=== PATIENT | male | born 1955 | race Caucasian/White ===

== ENCOUNTER 2023-12-13 06:02 | Day surgery (SDC) | payer BC, SELFPAY ==
[2023-12-13] VITALS (15 sets, daily range): BP systolic 96–147; BP diastolic 48–76; BMI 20.3
[2023-12-13] MEDS: NSS 184 ML IV (06:45)
[2023-12-13] MEDS: LOW STRENGTH ASPIRIN 81 MG PO (06:46)
--- NOTE | 2023-12-13 08:43 | ITS.CL.ANGIO ---
[facility] - Angioplasty
Angioplasty
Procedure Report:
LEFT HEART CATHETERIZATION
Date of Procedure: December 13, 2023
Procedures performed:
1: Coronary angiography
2: Left ventricular hemodynamic assessment
3: Percutaneous coronary intervention left circumflex artery with placement of a 2.5 x 18 mm Xience drug-eluting stent postdilated high-pressure with a 2.75 mm diameter noncompliant balloon
Primary Care Physician: Dr. Shine Soto
Primary Chemical Processing Equipment Repairer: Dr. Rajat Francis
INDICATION: The patient is a 68-year-old man who presents with atypical chest pain. He underwent nuclear perfusion imaging study which was positive for lateral ischemia.
ACCESS: The patient was prepped and draped in usual sterile fashion. A 6 Iranian sheath was placed in the right radial artery using the Seldinger over the wire technique.
HEMODYNAMIC FINDINGS (mmHg):
LV(s/d,EDP): 142/9, 18
Ao(s/d,m): 142/71, 101
ANGIOGRAPHIC FINDINGS:
Single-plane Left Ventriculography in ACKERMAN Projection: Not done. Normal EF by recent echo.
Coronary Angiography:
Dominance: Right
Left Main: Short, near dual ostial takeoff of the LAD and circumflex.
Left Anterior Descending: The left anterior descending artery is a small to medium caliber vessel that has moderate diffuse calcification. The LAD itself has diffuse moderate luminal irregularities with a smooth mid 50% stenosis. The LAD gives
rise to several small to medium caliber diagonal branches. The largest diagonal branch is the most distal branch. These vessels are widely patent with normal flow. The LAD has a smooth 50% stenosis after the takeoff of the most distal diagonal
branch. All vessels have normal flow distally.
Left Circumflex: The left circumflex is a medium caliber nondominant system that gives rise to 2 major obtuse marginal branches. There is a preocclusive 90% proximal stenosis with normal distal flow in the 2 widely patent distal OM's.
Right Coronary: The right coronary artery is a medium caliber dominant vessel that gives rise to a medium caliber posterior descending artery and 2 medium caliber posterior left ventricular branches. The right coronary artery has mild to moderate
calcification in the midportion associated with a 30% smooth stenosis.
Percutaneous Coronary Intervention (PCI): In light of the above angiographic findings and his clinical presentation, I elected to proceed with a PCI of the circumflex. The patient was pretreated with aspirin and given unfractionated heparin. A
loading dose of clopidogrel 600 mg was given on the table. A 6 Iranian XB 3.5 guiding catheter was used to engage the circumflex. A Hi-Torque floppy wire was easily Foley across the lesion. Predilation was performed a 2.0 x 15 mm balloon. Next a
2.5 x 18 mm Xience drug-eluting stent was deployed at 14 carlos. The stent was postdilated with a 2.75 mm diameter noncompliant balloon at 16 carlos. This was done in a distal to proximal fashion taking care to stay within the stented margins.
FINAL RESULT: 0% residual in-stent stenosis with an excellent angiographic result and normal flow in all vessels.
Fluoroscopy Time (min): 7.6
Radiation Dose (mGy): 268
DAP (Gy.cm2): 16
Closure device: None. A TR band was applied for hemostasis at the right wrist.
Complications: None.
ASSESSMENT:
1: Successful PCI of the circumflex with placement of a drug-eluting stent as described above.
2: Moderate nonobstructive residual LAD and RCA disease.
3: Normal left ventricular filling pressures.
CONCLUSIONS and RECOMMENDATIONS:
1: Routine post drug-eluting stent medical therapy and monitoring with dual antiplatelet therapy using aspirin 81 mg and clopidogrel 75 mg daily uninterrupted for a year and aspirin for life.
2: Medical therapy for coronary artery disease and hypertension with clinical follow-up as scheduled.
Aneta Zaragoza M.D.
Copy to: Dr. Shine Soto
[2023-12-13] MEDS: NSS 1000 IV (08:50)
[2023-12-13 10:02] LABS: ACT-LR - POC > 397 Seconds (116-155)
--- NOTE | 2023-12-13 13:28 | W.PN.UPDATE ---
Update Note
Progress Note Update
68yo WM s/p PCI LCx x1 ARABELLA (same day). He feels good, no cp, sob, maida diet, voiding, amb w/o dizziness, R rad site c/d/i no HT, EKG SR no sig ST changes. He will be on DAPT ASA/Plavix. Cardiac rehab c/s. He will f/u Dr. Sorenson. He is for
d/c home after 130p.
Procedures performed:
1: Coronary angiography
2: Left ventricular hemodynamic assessment
3: Percutaneous coronary intervention left circumflex artery with placement of a 2.5 x 18 mm Xience drug-eluting stent postdilated high-pressure with a 2.75 mm diameter noncompliant balloon
Primary Care Physician: Dr. Shine Soto
Primary Knife Operator: Dr. Rajat Frnacis
INDICATION: The patient is a 68-year-old man who presents with atypical chest pain. He underwent nuclear perfusion imaging study which was positive for lateral ischemia.
== END 2023-12-13 13:31 | disposition home or self-care (01) ==
LOC: CATH 06:02
PROVIDERS: ATTENDING PHYSICIAN Internal Medicine Interventional Cardiology; FAMILY PHYSICIAN Family Medicine; OTHER PHYSICIAN Internal Medicine Cardiovascular Disease
DX: I25.10 Atherosclerotic heart disease of native coronary artery without angina pectoris (principal); I10 Essential (primary) hypertension; R07.89 Other chest pain; Z79.02 Long term (current) use of antithrombotics/antiplatelets; Z79.82 Long term (current) use of aspirin; E78.00 Pure hypercholesterolemia, unspecified; R93.1 Abnormal findings on diagnostic imaging of heart and coronary circulation
CPT/HCPCS: 85347; 93005; 93458; C1725; C1769; C1874; C1887; C1894; C9600; Q9967